=== PATIENT | male | born 1990 | race Asian ===

== ENCOUNTER 2018-03-27 05:40 | Day surgery (SDC) | payer MEDICAID ==
[~2018-03-27] VITALS: Ht 172.7 cm; Wt 56.7 kg
[2018-03-27] MEDS ORDERED: MIDAZOLAM 2 MG/2 ML VIAL ONE (07:39)
[2018-03-27] MEDS ORDERED: fentaNYL 0.05 MG/ML VIAL ONE (07:39)
[2018-03-27] MEDS ORDERED: MIDAZOLAM 2 MG/2 ML VIAL IVP ONE (08:25)
== END 2018-03-27 08:42 | disposition home or self-care (01) ==
LOC: MDS 05:40 → MMU 05:50 → MDS 08:42
PROVIDERS: ATTEND Internal Medicine Gastroenterology
DX: K29.70 Gastritis, unspecified, without bleeding (principal); K31.89 Other diseases of stomach and duodenum; E78.5 Hyperlipidemia, unspecified; Z79.899 Other long term (current) drug therapy
CPT/HCPCS: 36415; 43239; 86677; J2250; J3010